=== PATIENT | female | born 1985 | race American Indian/Alaskan Native ===

== ENCOUNTER 2016-12-31 11:38 | Emergency (ER) | payer BC, OTHER ==
[2016-12-31 13:10] LABS: RBC URINE < 1 /hpf (0-3); URINE BACTERIA RARE (<OCC); URINE BILIRUBIN NEGATIVE (NEGATIVE); URINE BLOOD NEGATIVE (NEGATIVE); URINE COLOR Yellow (YELLOW); URINE GLUCOSE (UA) NORMAL (Normal); URINE KETONE NEGATIVE (NEGATIVE); URINE LEUKOCYTE ESTERASE NEG Leu/uL (Negative); URINE PROTEIN NEGATIVE (NEGATIVE); URINE UROBILINOGEN NORMAL mg/dL (0.2-1.0); WBC URINE 2 /hpf (0-5)
--- NOTE | 2016-12-31 15:31 | OBHP ---
Datetime: 12/31/2016 12:37 IP Adm Impression: , intrauterine IP Admit Plan: Discharge home Admit Comment, IP Provider: 31 year old at 21w3d ADDY 05/10/17 (per the patient) presents to L and D c/o difficulty voiding since Thursday. Reports that she has the urge to urinate but when she d oes, she only urinates "a little bit". No other complaints at this time. Denies dysuria. Endorses +FM , denies CTX, VB, LOF. Patient sees Dr Castillo, last visit was last . Currently on bedrest and progesterone for short cervix. OB Hx: 1. 2010 EAB with D+C 2. 2013 EAB with D+C 3. Current - twin gestation [employer] Hx: LMP - 07/2016 [facility] - unsure/regular/4 days Hx of uterine fibroid Denies hx of ovarian cysts or abnormal pap smear Hx of HGSIL/HPV with LEEP procedure in 2013? Allergies: NKDA Medications: Progesterone, PNV Medical Hx: denies Surgical Hx: D+C x 2, LEEP bx, cholecystectomy Social Hx: Denies alcohol, tobacco, drug use; Not currently working, on bedrest Family Hx: Mother - high cholesterol PE: see above A/P: 31 yo at 21w3d (twin gestation) presents with difficulty urinating 1. Stable, afebrile 2. CEFM and TOCO 3. UA sent 4. Plan d/w attending OB Addendum: UA showing rare bacteria, negative nitrates, negative leuk esterease; will prescribe Macrobid 100mg BID x 7 days for urinary symptoms, labor precautions given, patient to follow up with OBGYN as scheduled tomorrow. Plan d/w attending Adilene Pastrana DO PGY-1 Comments, ACOG Physical Exam: VS: 114/61 84 Gen: AAOx3, NAD Abd: soft, gravid, no fundal tenderness Ext: no clubbing, cyanosis, edema SVE: closed/thick/high EFM: baby A- 145bpm, appropriate for GA baby B- 150bpm, appropriate for GA Yarnell: none EGA AdmitDate IP: 21.3 IP Chief Complaint: Signs/symptoms UTI
--- NOTE | 2016-12-31 15:38 | OBDCSUM ---
Datetime: 12/31/2016 13:36 Discharged to, Provider: Home Follow up at, Provider: Dr Castillo Disch Instr Activity: Normal activity Disch Instr Diet: Regular Discharge Time: 12/31/2016 13:37 Follow up in weeks, Provider: 01/01/2017 Disch Referrals: None Discharge Diagnosis Prov Other: 21WEEK TWINS URINARUY DISCOMFORT
[2016-12-31 17:54] VITALS: BP 122/76; PULSE 91; RESP 18; TEMP 97.2; O2SAT 99
== END 2016-12-31 13:48 | disposition home or self-care (01) ==
LOC: C.EROB 11:38
DX: O26.892 Other specified pregnancy related conditions, second trimester (principal); R39.198 Other difficulties with micturition; Z3A.21 21 weeks gestation of pregnancy

== ENCOUNTER 2018-02-10 15:03 | Emergency (ER) | payer BC ==
[2018-02-10 15:12] VITALS: BP 107/71; PULSE 96; TEMP 97.5; O2SAT 100
--- NOTE | 2018-02-10 15:24 | C.PDOC ---
History Of Present Illness 32yo female, EGA of 12 weeks, comes to ER reporting redness and swelling above her left lip as well as swelling below her chin. Patient reports the swelling started on her lip 5 days ago and has been increasing. She denies any fever, chills, throat pain, mouth or tongue swelling, difficulty breathing or difficulty swallowing. Time Seen by Provider: 02/10/18 15:16 Chief Complaint (Nursing): Abnormal Skin Integrity History Per: Patient History/Exam Limitations: no limitations Onset/Duration Of Symptoms: Days Current Symptoms Are (Timing): Still Present Quality Of Symptoms: Swollen Additional History Per: Patient Past Medical History Reviewed: Historical Data, Nursing Documentation, Vital Signs Vital Signs: Last Vital Signs Temp 97.5 F L 02/10/18 15:07 Pulse 96 H 02/10/18 15:07 Resp 19 02/10/18 15:07 BP 107/71 02/10/18 15:07 Pulse Ox 100 02/10/18 15:07 - Medical History PMH: Arthritis Denies: Chronic Kidney Disease Surgical History: Cholecystectomy - [facility] Procedures CERVICAL LES CAUTERIZAT (08/05/13) D & C NEC (08/05/13) RESECTION OF GALLBLADDER, PERCUTANEOUS ENDOSCOPIC APPROACH (07/01/15) Family History: States: No Known Family Hx - Social History Hx Tobacco Use: No Hx Alcohol Use: No Hx Substance Use: No - Immunization History Hx Tetanus Toxoid Vaccination: No Hx Influenza Vaccination: No Hx Pneumococcal Vaccination: No Review Of Systems Except As Marked, All Systems Reviewed And Found Negative. Constitutional: Negative for: Fever, Chills ENT: Positive for: Other (swelling and erythema left upper lip and below lower mandible). Negative for: Mouth Pain, Mouth Swelling, Throat Pain, Throat Swelling Respiratory: Negative for: Shortness of Breath Physical Exam - Physical Exam Appears: Non-toxic, No Acute Distress Skin: Warm, Dry Head: Atraumatic, Normacephalic Eye(s): bilateral: Normal Inspection, EOMI Ear(s): Bilateral: Normal Nose: Normal, No Discharge Oral Mucosa: Moist Tongue: Normal Appearing, No Swelling Lips: Swelling, Other (area of erythema and swelling to left nasolabial fold with central scab and streaking to chin) Teeth: Normal Dentition Gingiva: Normal Appearing, No Erythema, No Abscess Throat: Normal, No Erythema, No Exudate Neck: Normal ROM, Supple Lymphatic: Other (left submandibular swelling and erythema noted ) Chest: Symmetrical Cardiovascular: Rhythm Regular Respiratory: Normal Breath Sounds Extremity: Bilateral: Atraumatic, Normal ROM Neurological/Psych: Oriented x3, Normal Speech Gait: Steady ED Course And Treatment O2 Sat by Pulse Oximetry: 100 (RA) Pulse Ox Interpretation: Normal Medical Decision Making Medical Decision Making: Impression: Cellulitis Plan: * Keflex 500mg PO Patient to be discharged home with prescription for kefflex. Informed to follow up with PMD in 2-3 days. Disposition Counseled Patient/Family Regarding: Diagnosis, Need For Followup - Disposition Referrals: Guanakito Baird MD [Staff Provider] - Disposition: HOME/ ROUTINE Disposition Time: 15:23 Condition: STABLE Additional Instructions: Follow up with your primary medical doctor or clinic in 2-5 days for further evaluation. Take medications as prescribed. Return to the emergency department at any time if symptoms persist or worsen. Prescriptions: Cephalexin [cephalexin] 500 mg PO Q12 #14 cap Mupirocin 2% Ointment [Bactroban Ointment] 15 gm EXT BID #1 tube Instructions: Cellulitis (Skin Infection), Adult (DC) Forms: [facility] (Wolof) - POA Present On Arrival: None - Clinical Impression Clinical Impression: Submandibular gland swelling, Skin lesion of face - PA / [employer] / Resident Statement MD/DO has reviewed & agrees with the documentation as recorded. - Scribe Statement The provider has reviewed the documentation as recorded by the Serenity Cohen Provider Attestation: All medical record entries made by the Serenity were at my direction and personally dictated by me. I have reviewed the chart and agree that the record accurately reflects my personal performance of the history, physical exam, medical decision making, and the department course for this patient. I have also personally directed, reviewed, and agree with the discharge instructions and disposition.
[2018-02-10 15:57] VITALS: RESP 18
== END 2018-02-10 15:57 | disposition home or self-care (01) ==
LOC: C.ER 15:03
DX: O26.891 Other specified pregnancy related conditions, first trimester (principal); R59.9 Enlarged lymph nodes, unspecified; L98.9 Disorder of the skin and subcutaneous tissue, unspecified; Z3A.12 12 weeks gestation of pregnancy

== ENCOUNTER 2018-07-29 13:41 | Emergency (ER) | payer BC ==
--- NOTE | 2018-07-29 15:12 | C.PDOC ---
History Of Present Illness 33 year old female presents to ED with complaint of 2 days of vaginal spotting. Patient is currently and has two healthy twins at home. Patient also complains of abdominal pain that occurred for 1 hour this morning and subsided with out medication. Patient describes the pain as sharp and a 10/10 in severity. She also reports urinary frequency that began 2 days ago. Patient also complaint of left-sided neck pain for the past day. Patient states that she only takes vitamin D supplements and no other medication. She states that she is not currently in any pain. Patient denies injuries, trauma, vomiting, nausea, diarrhea, hematuria, and dysuria. Time Seen by Provider: 07/29/18 14:39 Chief Complaint (Nursing): Female Genitourinary History Per: Patient History/Exam Limitations: no limitations Onset/Duration Of Symptoms: Days (2) Current Symptoms Are (Timing): Gone Quality Of Discomfort: Sharp Associated Symptoms: Other (left sided neck pain). denies: Nausea, Vomiting, Diarrhea, Urinary Symptoms Abnormal Vaginal Bleeding: Yes : 2 Para: 1 Miscarriage: 1 Past Medical History Reviewed: Historical Data, Nursing Documentation, Vital Signs - Medical History PMH: Arthritis Denies: Chronic Kidney Disease Surgical History: Cholecystectomy - [facility] Procedures CERVICAL LES CAUTERIZAT (08/05/13) D & C NEC (08/05/13) RESECTION OF GALLBLADDER, PERCUTANEOUS ENDOSCOPIC APPROACH (07/01/15) Family History: States: Unknown Family Hx - Social History Hx Tobacco Use: No Hx Alcohol Use: No Hx Substance Use: No - Immunization History Hx Tetanus Toxoid Vaccination: No Hx Influenza Vaccination: No Hx Pneumococcal Vaccination: No Review Of Systems Constitutional: Negative for: Fever, Chills, Weakness Gastrointestinal: Positive for: Abdominal Pain. Negative for: Nausea, Vomiting, Diarrhea Genitourinary: Positive for: Frequency, Vaginal Bleeding. Negative for: Dysuria, Hematuria Musculoskeletal: Positive for: Neck Pain (left-sided) Neurological: Negative for: Weakness, Numbness Physical Exam - Physical Exam Appears: Non-toxic, No Acute Distress Skin: Normal Color, Warm, Dry Head: Atraumatic, Normacephalic Neck: Normal ROM, Paracervical Tenderness (left-sided), Supple Chest: Symmetrical, No Deformity Cardiovascular: Rhythm Regular, No Murmur Respiratory: No Accessory Muscle Use, No Rales, No Rhonchi, No Wheezing Gastrointestinal/Abdominal: Soft, No Tenderness, Other (tympanic epigastrium, dull to the right and left sides) Extremity: Capillary Refill (<2 seconds) Extremity: Bilateral: Atraumatic, Normal Color And Temperature, Normal ROM Neurological/Psych: Oriented x3, Normal Speech, Normal Cognition ED Course And Treatment - Laboratory Results Lab Interpretation: Abnormal (UA 102 WBC's) Urine POC: Negative Progress Note: B-HCG and UA ordered for patient. Patient given Macrobid and Pyridium. Medical Decision Making Medical Decision Making: abd colic prob constip empiric laxatives UA +UTI macrobid x 5ay Preg neg Disposition Doctor Will See Patient In The: Office Counseled Patient/Family Regarding: Studies Performed, Diagnosis - Disposition Referrals: [facility] [Outside] [facility] [Outside] [facility] [Outside] [facility] [Outside] Disposition: HOME/ ROUTINE Disposition Time: 15:46 Condition: GOOD Additional Instructions: Macrobid 100 mg twice a day for 5 days Will clear up your UTI Constipation: Trial a laxative Diet changes Neck discomfort muscle strain motrin/tylenol as needed test NEGATIVE Prescriptions: Nitrofurantoin Macrocrystals [Macrobid] 100 mg PO BID #9 cap Instructions: Urinary Tract Infections in Adults, Urinary Tract Infection, Adult (DC) Forms: [facility] (Kazakh) - Clinical Impression Clinical Impression: UTI (urinary tract infection) - Scribe Statement The provider has reviewed the documentation as recorded by the Scribe (Bella Winkler) All medical record entries made by the Scribe were at my direction and personally dictated by me. I have reviewed the chart and agree that the record accurately reflects my personal performance of the history, physical exam, medical decision making, and the department course for this patient. I have also personally directed, reviewed, and agree with the discharge instructions and disposition.
[2018-07-29 15:26] LABS: HCG,QUALITATIVE URINE NEGATIVE (NEGATIVE)
[2018-07-29 15:29] LABS: SQUAMOUS EPITHIAL 2 /hpf (0-5); URINE BACTERIA RARE (<OCC); URINE BILIRUBIN NEGATIVE (NEGATIVE); URINE BLOOD 1+ (NEGATIVE); URINE CLARITY Hazy (Clear); URINE COLOR Amber (YELLOW); URINE GLUCOSE (UA) NORMAL (Normal); URINE LEUKOCYTE ESTERASE 2+ Leu/uL (Negative); URINE PROTEIN NEGATIVE (NEGATIVE); URINE UROBILINOGEN NORMAL mg/dL (0.2-1.0)
[2018-07-29 15:57] VITALS: RESP 18
[2018-07-29 16:04] VITALS: BP 136/79; PULSE 68; TEMP 98; O2SAT 100
== END 2018-07-29 17:19 | disposition home or self-care (01) ==
LOC: C.ER 13:41
DX: N39.0 Urinary tract infection, site not specified (principal)